=== PATIENT | male | born 1935 | race Caucasian/White ===

== ENCOUNTER 2019-07-28 20:56 | Emergency (ER) | payer OTHER ==
[~2019-07-28] VITALS: Ht 188 cm; Wt 75.3 kg
[2019-07-28 20:56] VITALS: BP 138/96
--- NOTE | 2019-07-28 20:56 | NUR ---
Pt ambulated from [facility] to lobby with vss. Bleeding controlled.
[2019-07-28] MEDS ORDERED: LIDOCAINE MPF 1% 10 MG/ML VIAL INJ ONE (21:30)
--- NOTE | 2019-07-28 21:44 | NUR ---
GAUZE ROLL WRAPPED OVER PT L THUMB
--- NOTE | 2019-07-28 22:30 | NUR ---
PT ARRIVED BY AMBULANCE, HAS NO TRANSPORTATION TO TAKE BACK HOME. PT STATES HE LIVES BY HIMSELF IN APARTMENT IN [place]. HAS KEYS. WILL ARRANGE FOR [employer] TO ESCORT BACK HOME.
[2019-07-28 22:35] VITALS: BP 128/91
--- NOTE | 2019-07-28 22:35 | NUR ---
PT WAS SEEN AND DISCHARGED BY DR IQBAL BEFORE I WAS ABLE TO ASSURE CARE FOR PT. PT WAS DISCHARGED BY [employer].
--- NOTE | 2019-07-28 22:35 | NUR ---
Patient discharged with v/s stable. Written and verbal after care instructions given and explained. Patient verbalized understanding. Ambulatory with steady gait. All questions addressed prior to discharge. Advised to follow up with PMD.
== END 2019-07-28 22:35 | disposition home or self-care (01) ==
LOC: MED 20:56
DX: S61.012A Laceration without foreign body of left thumb without damage to nail, initial encounter (principal); I10 Essential (primary) hypertension; Z90.49 Acquired absence of other specified parts of digestive tract; W45.8XXA Other foreign body or object entering through skin, initial encounter; Y93.89 Activity, other specified; Y92.89 Other specified places as the place of occurrence of the external cause; Y99.8 Other external cause status
CPT/HCPCS: 12001; 81002; 90471; 90715; 99283; J2001